=== PATIENT | male | born 1985 | race Caucasian/White ===

== ENCOUNTER 2018-08-11 19:28 | Inpatient (IN) | payer MEDICAID ==
[~2018-08-11] VITALS: Ht 157.5 cm; Wt 75.7 kg
[2018-08-11] MEDS ORDERED: SOD CHLORIDE 0.9% 1,000 ML IV STA (19:52)
[2018-08-11] MEDS ORDERED: ONDANSETRON 4 MG INJ IV STA (19:52)
[2018-08-11] MEDS ORDERED: morphine 4 MG/ML VIAL IV STA (19:52)
--- NOTE | 2018-08-11 20:39 | ERD ---
ER Documentation Chief Complaint Chief Complaint Pt reports blood in urine since yesterday HPI Patient is a 33-year-old male, no past medical history, presents the ER for concerns of hematuria and right lower quadrant pain for the last 2 days. Patient reports pain with urination. Patient states the pain comes and goes. Patient states he has vomited "20 times" today. Patient denies any fevers or chills. Patient denies any chest pain or shortness of breath. Patient denies any diarrhea. No recent travel. No sick contacts. ROS All systems reviewed and are negative except as per history of present illness. Allergies Allergies: Coded Allergies: No Known Allergy (Unverified , 08/11/18) PMhx/Soc Medical and Surgical Hx: pt denies Medical Hx, pt denies Surgical Hx Hx Miscellaneous Medical Probl: No Hx Alcohol Use: No Hx Substance Use: No Hx Tobacco Use: No Smoking Status: Never smoker FmHx Family History: No diabetes Physical Exam Vitals Vital Signs Date Temp Pulse Resp B/P (MAP) Pulse Ox O2 O2 Flow FiO2 Time Delivery Rate 08/11/18 98.0 62 16 105/72 97 Room Air 22:00 (83) 08/11/18 97.6 96 16 134/85 100 19:33 (101) Physical Exam GENERAL: Well-developed, well-nourished male. Appears in no acute distress. Spe aking in full sentences. HEAD: Normocephalic, atraumatic. EYES: Pupils are equally reactive bilaterally. EOMs grossly intact. No conjunctival erythema. ENT: Moist mucous membranes. No uvula deviation. No kissing tonsils. NECK: Supple. No meningismus. Normal range of motion of the neck. LUNG: Clear to auscultation bilaterally. No rhonchi, wheezing, rales or coarse breath sounds. HEART: Regular rate and rhythm. No murmurs, rubs or gallops. ABDOMEN: Soft and nondistended. Tender to palpation in the right lower quadrant. Positive bowel sounds in all four quadrants. No rebound tenderness, no guarding. (-) McBurney's point tenderness. No CVA tenderness. EXTREMITIES: Equal pulses bilaterally. No peripheral clubbing, cyanosis or edema. No unilateral leg swelling. NEUROLOGIC: Alert and oriented. Moving all four extremities without any difficulty. Normal speech. Steady gait. SKIN: Normal color. Warm and dry. No rashes or lesions. Result Diagram: 08/11/18201308/11/182013 Results 24 hrs Laboratory Tests Test 08/11/18 20:14 White Blood Count 9.9 10^3/ul Red Blood Count 4.92 10^6/ul Hemoglobin 13.8 g/dl Hematocrit 40.1 % Mean Corpuscular Volume 81.5 fl Mean Corpuscular Hemoglobin 28.0 pg Mean Corpuscular Hemoglobin Concent 34.4 g/dl Red Cell Distribution Width 14.2 % Platelet Count 280 10^3/UL Mean Platelet Volume 9.8 fl Immature Granulocytes % 0.300 % Neutrophils % 71.7 % Lymphocytes % 16.5 % Monocytes % 9.3 % Eosinophils % 1.9 % Basophils % 0.3 % Nucleated Red Blood Cells % 0.0 /100WBC Immature Granulocytes # 0.030 10^3/ul Neutrophils # 7.1 10^3/ul Lymphocytes # 1.6 10^3/ul Monocytes # 0.9 10^3/ul Eosinophils # 0.2 10^3/ul Basophils # 0.0 10^3/ul Nucleated Red Blood Cells # 0.0 10^3/ul Urine Color YELLOW Urine Clarity CLOUDY Urine pH 5.0 Urine Specific [place] 1.021 Urine Ketones NEGATIVE mg/dL Urine Nitrite NEGATIVE mg/dL Urine Bilirubin NEGATIVE mg/dL Urine Urobilinogen NEGATIVE mg/dL Urine Leukocyte Esterase NEGATIVE Darnell/ul Urine Microscopic RBC 96 /HPF Urine Microscopic WBC 5 /HPF Urine Mucus FEW /HPF Urine Hemoglobin 3+ mg/dL Urine Glucose NEGATIVE mg/dL Urine Total Protein NEGATIVE mg/dl Sodium Level 144 mmol/L Potassium Level 3.7 mmol/L Chloride Level 106 mmol/L Carbon Dioxide Level 25 mmol/L Anion Gap 13 Blood Urea Nitrogen 20 mg/dl Creatinine 2.11 mg/dl Est Glomerular Filtrat Rate mL/min 36 mL/min Glucose Level 93 mg/dl Calcium Level 8.7 mg/dl Total Bilirubin 0.6 mg/dl Direct Bilirubin 0.00 mg/dl Indirect Bilirubin 0.6 mg/dl Aspartate Amino Transf (AST/SGOT) 22 IU/L Alanine Aminotransferase (ALT/SGPT) 19 IU/L Alkaline Phosphatase 83 IU/L Total Protein 8.3 g/dl Albumin 4.4 g/dl Globulin 3.90 g/dl Albumin/Globulin Ratio 1.12 Lipase 73 U/L Current Medications Medications Dose Sig/Adilson Start Time Status Last (Trade) Ordered Route PRN Stop Time Admin Dose Reason Admin Sodium 1,000 ml @ Q1H STAT 08/11/18 DC 08/11/18 Chloride 1,000 mls/hr IV 19:52 08/11/18 20:11 20:51 Morphine 4 mg ONCE STAT 08/11/18 DC 08/11/18 Sulfate IV 19:52 08/11/18 20:11 (morphine) 19:53 Ondansetron 4 mg ONCE STAT 08/11/18 DC 08/11/18 HCl (Zofran IV 19:52 08/11/18 20:11 Inj) 19:53 Ondansetron 4 mg BRIDGE ORDER 08/11/18 HCl (Zofran PRN IV 23:00 08/12/18 Inj) NAUSEA/VOMITI 22:59 NG 650 mg ER BRIDGE 08/11/18 Acetaminophen PRN PO 23:00 08/12/18 (Tylenol .MILD PAIN 22:59 Tab) 1-3 OR TEMP Sodium 1,000 ml @ Q10H IV 08/11/18 08/12/18 Chloride 100 mls/hr 22:57 00:59 IV Flush 3 ml PER 08/11/18 (NS 3 ml) PROTOCOL IV 23:00 Ondansetron 4 mg Q6H PRN 08/11/18 08/12/18 HCl (Zofran IV 23:00 00:53 Inj) NAUSEA/VOMITI NG 650 mg Q6H PRN 08/11/18 Acetaminophen PO .PAIN 1-3 23:00 (Tylenol OR TEMP Tab) 1 tab Q6H PRN 08/11/18 Acetaminophen PO .MOD PAIN 23:00 / 4-6 Hydrocodone Bitart ([place] (5/325)) 2 tab Q6H PRN 08/11/18 Acetaminophen PO .SEVERE 23:00 / PAIN 7-10 Hydrocodone Bitart ([place] (5/325)) Tamsulosin 0.4 mg ONCE ONCE 08/11/18 DC 08/11/18 HCl PO 23:00 08/11/18 23:27 (Flomax) 23:01 Procedures/MDM ED COURSE: The patient was stable throughout ED course. I kept the patient and/or family informed of laboratory and diagnostic imaging results throughout the ED course. DIAGNOSTIC IMAGING: Read by radiologist. Patient: REESE MUSTAFA : 1985 Age: 33 Sex: M MR #: [id number] DOS: 08/11/181951 Ordering MD: CARMENCITA MONZON PA-C [facility] Room/Bed: PROCEDURE: CT SCAN OF THE ABDOMEN AND PELVIS NON CONTRAST CLINICAL INDICATION: Abdominal pain TECHNIQUE: Utilizing the multi-slice spiral CT scanner, Transaxial images were obtained through the abdomen and pelvis without contrast. Additional sagittal, coronal, MPR images were also obtained. DICOM images are available Radiation Dose: CTDI vol 10.53 mGy, DLP 648.76 mGy-cm. One of more of the following dose reduction techniques were utilized: -automatic exposure control -adjustment of the mA and/or kV according to patient size -Use of iterative reconstruction technique Contrast used: None COMPARISON: None FINDINGS: Limited slices through the lung bases are clear. CT Abdomen Fatty liver distended stomach, normal spleen, adrenals, pancreas and gallbladder is seen. Kidneys do not demonstrate any intra renal stones. Mild right hydroureter noted due to 5X7 mm stone in the proximal ureter, image 3 - 99 periureteric fat stranding is seen. Bowel gas pattern appears nonspecific with no free air or ascites noted. Appendix is seen appearing unremarkable. No ret roperitoneal adenopathy noted. Diverticula seen in the entire large bowel without CT evidence of acute diverticulitis noted. CT pelvis: Diverticula seen in the sigmoid colon without CT evidence of diverticulitis. Prostate, bladder appears unremarkable. No pelvic ascites noted. IMPRESSION: Fatty liver. Diverticulosis colon without CT evidence of diverticulitis Right hydroureter due to 5X7 mm stone right proximal ureter RPTAT: AAOO Physician Galo Date Time Electronically viewed and signed by Physician Galo on 08/11/2018 20:24 MB/ CC: CARMENCITA MONZON PA-C [id number] PROCEDURES: None. MEDICATIONS GIVEN: IV fluids, Zofran, morphine Patient tolerated medication well with no adverse reactions. Patient reported improvement in pain. MEDICAL DECISION MAKING: This is a 33-year-old male who presents the ER for concerns of right lower quadrant pain and hematuria x2 days. Bital signs were reviewed. Patient was afebrile. UA did show positive RBCs and positive hemoglobin. CBC showed no evidence of systemic infection. Mild anemia noted. CMP showed no severe electrolyte abnormalities, acidosis, alkalosis. His creatinine was noted to be 2.11. Concerns of renal injury. Lipase is within normal limits. CT abdomen pelvis showed Fatty liver. Diverticulosis colon without CT evidence of diverticulitis. Right hydroureter due to 5X7 mm stone right proximal ureter. Patient was given IV fluids, Zofran and morphine. Upon reexamination, patient has significant improvement pain. Given patient's elevated creatinine and size of his kidney stone, patient will be admitted for further work-up and management. Patient was stable throughout ED course. Supervising physician, Dr. Cortez will assist with admission. Low suspicion for urosepsis, septic stone, pyelonephritis, appendicitis, diverticulitis. Attending addendum: Patient presented with right-sided abdominal pain and hematuria. He was noted on work-up by the PA to have an obstructing kidney stone with hydronephrosis and labs showing evidence of renal failure. To the patient's knowledge, he does not have a history of renal disease. For this reason, I feel the patient requires admission for further specialist consultation and likely intervention. I have reviewed and agree with the PAs exam, assessment and plan. I will defer consultation of nephrology and urology to the inpatient team as this does not have to be done emergently in the ER. Spoke with the panel physician, Dr. Bone, who will admit the patient to [facility]. Departure Diagnosis: Primary Impression: Nephrolithiasis Additional Impressions: Diverticulosis Acute kidney injury Condition: Fair Patient Instructions: Kidney Stone W/ Colic Referrals: FROY JONES MD [facility] YOU HAVE RECEIVED A MEDICAL SCREENING EXAM AND THE RESULTS INDICATE THAT YOU DO NOT HAVE A CONDITION THAT REQUIRES URGENT TREATMENT IN THE EMERGENCY DEPARTMENT. FURTHER EVALUATION AND TREATMENT OF YOUR CONDITION CAN WAIT UNTIL YOU ARE SEEN IN YOUR DOCTORS OFFICE WITHIN THE NEXT 1-2 DAYS. IT IS YOUR RESPONSIBILITY TO MAKE AN APPOINTMENT FOR FOLOW-UP CARE. IF YOU HAVE A PRIMARY DOCTOR --you should call your primary doctor and schedule an appointment IF YOU DO NOT HAVE A PRIMARY DOCTOR YOU CAN CALL OUR PHYSICIAN REFERRAL HOTLINE AT IF YOU CAN NOT AFFORD TO SEE A PHYSICIAN YOU CAN CHOSE FROM THE FOLLOWING [facility] [address] [facility] [address] [facility] [address] [facility] [address] [facility] [address] [facility]. [facility] [address] [facility]. [facility] YOU HAVE RECEIVED A MEDICAL SCREENING EXAM AND THE RESULTS INDICATE THAT YOU DO NOT HAVE A CONDITION THAT REQUIRES URGENT TREATMENT IN THE EMERGENCY DEPARTMENT. FURTHER EVALUATION AND TREATMENT OF YOUR CONDITION CAN WAIT UNTIL YOU ARE SEEN IN YOUR DOCTORS OFFICE WITHIN THE NEXT 1-2 DAYS. IT IS YOUR RESPONSIBILITY TO MAKE AN APPOINTMENT FOR FOLOW-UP CARE. IF YOU HAVE A PRIMARY DOCTOR --you should call your primary doctor and schedule and appointment IF YOU DO NOT HAVE A PRIMARY DOCTOR YOU CAN CALL OUR PHYSICIAN REFERRAL HOTLINE AT . IF YOU CAN NOT AFFORD TO SEE A PHYSICIAN YOU CAN CHOSE FROM THE FOLLOWING [facility] INSTITUTIONS: [facility] [address] [place] [address] [facility] [address] [place] [address] [facility] [address] [place] [address] Additional Instructions: Necesita va carlos specialista urologia. Libby mucho agua. Llame al doctor MAANA y lucinda carlos BHASKAR PARA DENTRO DE 1-2 LUGO.Dgale a la secretaria que nosotros le instruimos hacer esta bhaskar.Avise o llame si rao condicin se empeora antes de la bhaskar. Regresa aqui si peor o no mejor. CARMENCITA MONZON PA-C Aug 11, 2018 20:38 CASIE CORTEZ MD Aug 12, 2018 02:39
--- NOTE | 2018-08-11 22:59 | HP ---
Date/Time of Note Date/Time of Note DATE: 08/11/18 TIME: 22:59 Assessment/Plan VTE Prophylaxis Pharmacological prophylaxis: heparin Lines/Catheters IV Catheter Type (from Nrsg): Saline Lock Assessment/Plan Assessment/Plan 1. Right proximal ureteral stone with hydronephrosis -IV fluid -Pain management -Flomax -Strain urine -Empiric IV Rocephin 2. Hematuria, secondary to above -UA negative for UTI -See #1 3. Acute renal insufficiency -See #1 -Nephrology consult Result Diagram: 08/11/18201308/11/182013 Results 24hrs Laboratory Tests Test 08/11/18 20:14 White Blood Count 9.9 Red Blood Count 4.92 Hemoglobin 13.8 L Hematocrit 40.1 L Mean Corpuscular Volume 81.5 L Mean Corpuscular Hemoglobin 28.0 L Mean Corpuscular Hemoglobin Concent 34.4 Red Cell Distribution Width 14.2 Platelet Count 280 Mean Platelet Volume 9.8 Immature Granulocytes % 0.300 Neutrophils % 71.7 Lymphocytes % 16.5 Monocytes % 9.3 Eosinophils % 1.9 Basophils % 0.3 Nucleated Red Blood Cells % 0.0 Immature Granulocytes # 0.030 Neutrophils # 7.1 Lymphocytes # 1.6 Monocytes # 0.9 Eosinophils # 0.2 Basophils # 0.0 Nucleated Red Blood Cells # 0.0 Urine Color YELLOW Urine Clarity CLOUDY A Urine pH 5.0 Urine Specific [place] 1.021 Urine Ketones NEGATIVE Urine Nitrite NEGATIVE Urine Bilirubin NEGATIVE Urine Urobilinogen NEGATIVE Urine Leukocyte Esterase NEGATIVE Urine Microscopic RBC 96 H Urine Microscopic WBC 5 Urine Mucus FEW A Urine Hemoglobin 3+ H Urine Glucose NEGATIVE Urine Total Protein NEGATIVE Sodium Level 144 Potassium Level 3.7 Chloride Level 106 Carbon Dioxide Level 25 Anion Gap 13 Blood Urea Nitrogen 20 Creatinine 2.11 H Est Glomerular Filtrat Rate mL/min 36 L Glucose Level 93 Calcium Level 8.7 Total Bilirubin 0.6 Direct Bilirubin 0.00 Indirect Bilirubin 0.6 Aspartate Amino Transf (AST/SGOT) 22 Alanine Aminotransferase (ALT/SGPT) 19 Alkaline Phosphatase 83 Total Protein 8.3 H Albumin 4.4 Globulin 3.90 H Albumin/Globulin Ratio 1.12 Lipase 73 HPI/ROS Admit Date/Time Admit Date/Time Hx of Present Illness Patient is a 34-year-old male who presented to ER complaining of right lower quadrant pain, hematuria and vomiting of [address] abdomen/pelvis shows Right hydroureter due to 5X7 mm stone right proximal ureter. UA negative for UTI. PMH/Family/Social Past Medical History Past Surgical Hx: other Family History Significant Family History: no pertinent family hx Social History Alcohol Use: none Smoking Status: Never smoker Drug Use: none Exam Constitutional: other (No acute distress) Head: normocephalic, atraumatic Eyes: EOMI, PERRL Respiratory: clear to auscultation, normal air movement Cardiovascular: regular rate and rhythm Gastrointestinal: soft Extremities: normal pulses Medications Current Medications Ondansetron HCl (Zofran Inj) 4 mg BRIDGE ORDER PRN IV NAUSEA/VOMITING; Start 08/11/18 at 23:00; Stop 08/12/18 at 22:59 Acetaminophen (Tylenol Tab) 650 mg ER BRIDGE PRN PO .MILD PAIN 1-3 OR TEMP; Start 08/11/18 at 23:00; Stop 08/12/18 at 22:59 Coded Allergies: No Known Allergy (Unverified , 08/11/18) Social History Smoking Status: Never smoker Exam/Review of Systems Vital Signs Vitals Vital Signs Date Temp Pulse Resp B/P (MAP) Pulse Ox O2 O2 Flow FiO2 Time Delivery Rate 08/11/18 97.6 96 16 134/85 100 19:33 (101) SEAN BOO MD Aug 11, 2018 22:59
[2018-08-11] MEDS ORDERED: TAMSULOSIN (SR) 0.4 MG CAP PO ONE (23:00)
[2018-08-11] MEDS ORDERED: ACETAMINOPHEN 325 MG TAB PO PRN ×2 (23:00)
[2018-08-11] MEDS ORDERED: ONDANSETRON 4 MG INJ IV PRN (23:00)
[2018-08-11] MEDS ORDERED: NACL 0.9% 3 ML SYG IV SCH (23:00)
[2018-08-11] MEDS ORDERED: HYDROCODONE/APAP (5/325) TAB PO PRN (23:00)
[2018-08-12 00:30] VITALS: BP 127/83; PULSE 67; RESP 19
[2018-08-12 00:42] VITALS: Ht 157.5 cm; Wt 75.7 kg
[2018-08-12] MEDS: ONDANSETRON 4 MG INJ IV PRN (00:53)
[2018-08-12] MEDS: SOD CHLORIDE 0.9% 1,000 ML IV SCH ×4 (00:59→20:56)
[2018-08-12 02:00] VITALS: BP 106/67; PULSE 75; RESP 18
[2018-08-12 07:45] VITALS: BP 104/64; PULSE 72; RESP 18
--- NOTE | 2018-08-12 11:04 | CONS ---
DATE OF ADMISSION: 08/11/2018 DATE OF CONSULTATION: 08/12/2018 TYPE OF CONSULTATION: Nephrology. REASON FOR CONSULTATION: Acute kidney injury, ureteral stone. PHYSICIAN REQUESTING CONSULT: Dr. Boo. HISTORY OF PRESENT ILLNESS: This is a 33-year-old male with no past medical history who presented to [facility] with complaints of right lower quadrant pain, hematuria and vomiting x2 days. The patient upon arrival to the emergency room had a CT scan of the abdomen and pelvis that s howed right hydroureter due to a 5 x 7 mm stone in the right proximal ureter. [facility] was placed on IV fluids, was given pain medications and admitted to med/surg. In terms of patient's renal history, the patient denies any prior history of kidney disease, acute in jury. Denies any hemoptysis, hematemesis or hematochezia. PAST MEDICAL HISTORY: None. PAST SURGICAL HISTORY: None. ALLERGIES: None. MEDICATIONS: The patient's medications have been reviewed. REVIEW OF SYSTEMS: A 14-point review of systems was conducted. Pertinent positives stated in HPI, o therwise negative. PHYSICAL EXAMINATION: VITAL SIGNS: Blood pressure 104/64, respiration 18, pulse 92, temperature 97.7. HEENT: Head is normocephalic. NECK: Supple. HEART: Regular rate. LUNGS: Show diminished breath sounds at the base. ABDOMEN: Soft, positive tender to palpation in the right lower quadrant. Positive CVA tenderness. Positive guarding, no rebound. EXTREMITIES: Negative for clubbing, cyanosis, no edema. DERMATOLOGIC: No rashes. MUSCULOSKELETAL: No joint effusion. NEUROLOGIC: No change in exam. MEDICATIONS: The patient's medications have been reviewed. LABORATORY DATA: Has been reviewed. IMAGING STUDIES: Have been reviewed. ASSESSMENT AND PLAN: This is a 33-year-old male who presents with: 1. Nonoliguric acute kidney injury, etiology secondary to volume depletion, right hydronephrosis sec ondary to ureteral stone. The patient's urinalysis was reviewed, showed evidence of hematuria consis tent with a ureteral stone. The patient's renal function has improved with IV hydration. Recommenda tion at this point is to continue current treatment plan, continue IV fluids. Will check patient's u rine electrolytes, calculate a FENa. Otherwise, continue supportive care, renally dose all meds. Wo uld consider urologic evaluation. 2. Right hydronephrosis secondary to right proximal ureteral stone. Continue current medical manage ment. Continue IV fluids, continue pain management. Continue Flomax. Continue empiric antibiotics. Follow up with urology. 3. Mild anemia. Monitor hemoglobin and hematocrit levels. 4. Mineral bone disorder. Monitor calcium and phosphorus levels. Thank you, Dr. Boo, for this interesting consult. It will be a pleasure to follow patient with you throughout the hospital course. Dictated By: KIKO SNEED DO NR/NTS Conf#: [id number] DID#: [id number] CC: SEAN BOO MD; FROY JONES MD;*End*
--- NOTE | 2018-08-12 11:05 | CONS ---
Assessment/Plan Assessment/Plan Hospital Course (Demo Recall) 33-year-old male presented to the emergency room with right flank pain associated with nausea and vomiting. He underwent a CT scan of the abdomen and pelvis and that showed: IMPRESSION: Fatty liver. Diverticulosis colon without CT evidence of diverticulitis Right hydroureter due to 5X7 mm stone right proximal ureter Patient denies any prior history of kidney stones. There is no lower urinary tract symptoms. Impression right upper ureteral stone. Upon reviewing the CT scan the stone is not dense and is not seen on the acquisition marketing coordinator film of the CT scan. It may be a uric acid stone. Recommend: Pain medications, strain the urine, tamsulosin, encourage p.o. fluids. . Consultation Date/Type/Reason Admit Date/Time August 11, 2018 Date of Consultation: Aug 12, 2018 Type of Consult Urology Reason for Consultation Right upper ureteral stone Requesting Provider: SEAN BOO MD Date/Time of Note DATE: 08/12/18 TIME: 10:59 Hx of Present Illness 33-year-old male presented to the emergency room with right flank pain associated with nausea and vomiting. He underwent a CT scan of the abdomen and pelvis and that showed: IMPRESSION: Fatty liver. Diverticulosis colon without CT evidence of diverticulitis Right hydroureter due to 5X7 mm stone right proximal ureter Patient denies any prior history of kidney stones. There is no lower urinary tract symptoms. . Constitutional: no complaints Eyes: no complaints ENT: no complaints Respiratory: no complaints Cardiovascular: no complaints Gastrointestinal: nausea (On admission), vomiting (On admission) Genitourinary: flank pain (Right side) Musculoskeletal: no complaints Skin: no complaints Neurologic: no complaints Endocrine: no complaints Past Medical History Medical History: no pertinent history Medications Current Medications Ondansetron HCl (Zofran Inj) 4 mg BRIDGE ORDER PRN IV NAUSEA/VOMITING; Start 08/11/18 at 23:00; Stop 08/12/18 at 22:59 Acetaminophen (Tylenol Tab) 650 mg ER BRIDGE PRN PO .MILD PAIN 1-3 OR TEMP; Start 08/11/18 at 23:00; Stop 08/12/18 at 22:59 Sodium Chloride 1,000 ml @ 100 mls/hr Q10H IV Last administered on 08/12/18at 00:59; Admin Dose 100 MLS/HR; Start 08/11/18 at 22:57 IV Flush (NS 3 ml) 3 ml PER PROTOCOL IV ; Start 08/11/18 at 23:00 Ondansetron HCl (Zofran Inj) 4 mg Q6H PRN IV NAUSEA/VOMITING Last administered on 08/12/18at 00:53; Admin Dose 4 MG; Start 08/11/18 at 23:00 Acetaminophen (Tylenol Tab) 650 mg Q6H PRN PO .PAIN 1-3 OR TEMP; Start 08/11/18 at 23:00 Acetaminophen/ Hydrocodone Bitart ([place] (5/325)) 1 tab Q6H PRN PO .MOD PAIN 4- 6 Last administered on 08/12/18at 08:14; Admin Dose 1 TAB; Start 08/11/18 at 23:00 Acetaminophen/ Hydrocodone Bitart ([place] (5/325)) 2 tab Q6H PRN PO .SEVERE PAIN 7-10; Start 08/11/18 at 23:00 Allergies: Coded Allergies: No Known Allergy (Unverified , 08/11/18) Past Surgical History Past Surgical Hx: no surgical history Social History Alcohol Use: none Smoking Status: Never smoker Drug Use: none Exam/Review of Systems Exam Vitals Vital Signs Date Temp Pulse Resp B/P (MAP) Pulse Ox O2 O2 Flow FiO2 Time Delivery Rate 08/12/18 97.7 72 18 104/64 96 07:45 (77) 08/11/18 Room Air 22:00 Intake and Output 08/11/18 08/11/18 08/12/18 1515:00 23:00 07:00 IntakeIntake Total 1000 ml 400 ml OutputOutput Total 300 ml BalanceBalance 1000 ml 100 ml Constitutional: alert Psych: no complaints Head: normocephalic Eyes: nl conjunctiva ENMT: nl external ears & nose Neck: supple Respiratory: normal air movement Cardiovascular: No jugular venous distention (JVD) Gastrointestinal: soft Genitourinary - Male: nl penis, nl scrotum, CVA tenderness (Right side) Extremities: No calf tenderness Neurological: nl mental status Results Result Diagram: 08/12/18 0508/12/18 05 Results 24hrs Laboratory Tests Test 08/11/18 20:14 08/12/18 05:26 White Blood Count 9.9 7.7 # Red Blood Count 4.92 4.71 Hemoglobin 13.8 L 13.0 L Hematocrit 40.1 L 38.9 L Mean Corpuscular Volume 81.5 L 82.6 Mean Corpuscular Hemoglobin 28.0 L 27.6 L Mean Corpuscular Hemoglobin Concent 34.4 33.4 Red Cell Distribution Width 14.2 14.6 H Platelet Count 280 263 Mean Platelet Volume 9.8 10.3 Immature Granulocytes % 0.300 0.300 Neutrophils % 71.7 67.3 Lymphocytes % 16.5 19.3 Monocytes % 9.3 8.4 Eosinophils % 1.9 3.9 Basophils % 0.3 0.8 Nucleated Red Blood Cells % 0.0 0.0 Immature Granulocytes # 0.030 0.020 Neutrophils # 7.1 5.2 Lymphocytes # 1.6 1.5 Monocytes # 0.9 0.7 Eosinophils # 0.2 0.3 Basophils # 0.0 0.1 Nucleated Red Blood Cells # 0.0 0.0 Urine Color YELLOW Urine Clarity CLOUDY A Urine pH 5.0 Urine Specific [place] 1.021 Urine Ketones NEGATIVE Urine Nitrite NEGATIVE Urine Bilirubin NEGATIVE Urine Urobilinogen NEGATIVE Urine Leukocyte Esterase NEGATIVE Urine Microscopic RBC 96 H Urine Microscopic WBC 5 Urine Mucus FEW A Urine Hemoglobin 3+ H Urine Glucose NEGATIVE Urine Total Protein NEGATIVE Sodium Level 144 142 Potassium Level 3.7 4.2 Chloride Level 106 110 Carbon Dioxide Level 25 24 Anion Gap 13 8 Blood Urea Nitrogen 20 18 Creatinine 2.11 H 1.42 H Est Glomerular Filtrat Rate mL/min 36 L 57 L Glucose Level 93 100 Calcium Level 8.7 8.1 L Total Bilirubin 0.6 0.5 Direct Bilirubin 0.00 0.00 Indirect Bilirubin 0.6 0.5 Aspartate Amino Transf (AST/SGOT) 22 19 Alanine Aminotransferase (ALT/SGPT) 19 16 Alkaline Phosphatase 83 75 Total Protein 8.3 H 7.0 # Albumin 4.4 3.6 Globulin 3.90 H 3.40 H Albumin/Globulin Ratio 1.12 1.05 Lipase 73 Phosphorus Level 4.1 Magnesium Level 2.2 Medications Medication Current Medications Ondansetron HCl (Zofran Inj) 4 mg BRIDGE ORDER PRN IV NAUSEA/VOMITING; Start 08/11/18 at 23:00; Stop 08/12/18 at 22:59 Acetaminophen (Tylenol Tab) 650 mg ER BRIDGE PRN PO .MILD PAIN 1-3 OR TEMP; Start 08/11/18 at 23:00; Stop 08/12/18 at 22:59 Sodium Chloride 1,000 ml @ 100 mls/hr Q10H IV Last administered on 08/12/18at 00:59; Admin Dose 100 MLS/HR; Start 08/11/18 at 22:57 IV Flush (NS 3 ml) 3 ml PER PROTOCOL IV ; Start 08/11/18 at 23:00 Ondansetron HCl (Zofran Inj) 4 mg Q6H PRN IV NAUSEA/VOMITING Last administered on 08/12/18at 00:53; Admin Dose 4 MG; Start 08/11/18 at 23:00 Acetaminophen (Tylenol Tab) 650 mg Q6H PRN PO .PAIN 1-3 OR TEMP; Start 08/11/18 at 23:00 Acetaminophen/ Hydrocodone Bitart ([place] (5/325)) 1 tab Q6H PRN PO .MOD PAIN 4- 6 Last administered on 08/12/18at 08:14; Admin Dose 1 TAB; Start 08/11/18 at 23:00 Acetaminophen/ Hydrocodone Bitart ([place] (5/325)) 2 tab Q6H PRN PO .SEVERE PAIN 7-10; Start 08/11/18 at 23:00 FROY JONES MD Aug 12, 2018 11:05
[2018-08-12] MEDS ORDERED: morphine 2 MG INJ IV PRN (13:30)
[2018-08-12 13:46] VITALS: BP 119/82; PULSE 75; RESP 18
[2018-08-12] MEDS: HYDROCODONE/APAP (5/325) TAB PO PRN ×2 (14:16→20:57)
--- NOTE | 2018-08-12 14:44 | PN ---
Date/Time of Note Date/Time of Note DATE: 08/12/18 TIME: 14:39 Assessment/Plan VTE Prophylaxis Risk score (from [facility])>0 risk: 0 SCD applied (from [facility]): Yes Pharmacological prophylaxis: NA/contraindicated Pharm contraindication: low risk/ambulating Lines/Catheters IV C[facility]ter Type (from [facility] Saline Lock Urinary Cath still in place: No Assessment/Plan Hospital Course Assessment and plan 1. Right proximal ureteral stone with hydronephrosis. Automobile Drivers and ur ologist consulted. Strain urine per urologist recommendations. Continue with analgesics. On Flomax. 2. Hematuria secondary to #1. Monitor H&H. Stable at present. 3. Acute renal insufficiency secondary to #1. Automobile Drivers following. Monitor renal panel. Correct electrolytes as needed. Disposition plan. Continue with analgesics. On IV fluids. Monitor for improvement. Follow-up with urologist recommendations. Continue to monitor in- house Discussed POC with Dr. Alvarez Result Diagram: 08/12/18 0508/12/18 0526 Results 24hrs Laboratory Tests Test 08/11/18 20:14 08/12/18 05:26 08/12/18 11:10 White Blood Count 9.9 7.7 # Red Blood Count 4.92 4.71 Hemoglobin 13.8 L 13.0 L Hematocrit 40.1 L 38.9 L Mean Corpuscular Volume 81.5 L 82.6 Mean Corpuscular Hemoglobin 28.0 L 27.6 L Mean Corpuscular Hemoglobin Concent 34.4 33.4 Red Cell Distribution Width 14.2 14.6 H Platelet Count 280 263 Mean Platelet Volume 9.8 10.3 Immature Granulocytes % 0.300 0.300 Neutrophils % 71.7 67.3 Lymphocytes % 16.5 19.3 Monocytes % 9.3 8.4 Eosinophils % 1.9 3.9 Basophils % 0.3 0.8 Nucleated Red Blood Cells % 0.0 0.0 Immature Granulocytes # 0.030 0.020 Neutrophils # 7.1 5.2 Lymphocytes # 1.6 1.5 Monocytes # 0.9 0.7 Eosinophils # 0.2 0.3 Basophils # 0.0 0.1 Nucleated Red Blood Cells # 0.0 0.0 Urine Color YELLOW Urine Clarity CLOUDY A Urine pH 5.0 Urine Specific [place] 1.021 Urine Ketones NEGATIVE Urine Nitrite NEGATIVE Urine Bilirubin NEGATIVE Urine Urobilinogen NEGATIVE Urine Leukocyte Esterase NEGATIVE Urine Microscopic RBC 96 H Urine Microscopic WBC 5 Urine Mucus FEW A Urine Hemoglobin 3+ H Urine Glucose NEGATIVE Urine Total Protein NEGATIVE 16.0 H Sodium Level 144 142 Potassium Level 3.7 4.2 Chloride Level 106 110 Carbon Dioxide Level 25 24 Anion Gap 13 8 Blood Urea Nitrogen 20 18 Creatinine 2.11 H 1.42 H Est Glomerular Filtrat Rate mL/min 36 L 57 L Glucose Level 93 100 Calcium Level 8.7 8.1 L Total Bilirubin 0.6 0.5 Direct Bilirubin 0.00 0.00 Indirect Bilirubin 0.6 0.5 Aspartate Amino Transf (AST/SGOT) 22 19 Alanine Aminotransferase (ALT/SGPT) 19 16 Alkaline Phosphatase 83 75 Total Protein 8.3 H 7.0 # Albumin 4.4 3.6 Globulin 3.90 H 3.40 H Albumin/Globulin Ratio 1.12 1.05 Lipase 73 Phosphorus Level 4.1 Magnesium Level 2.2 Urine Random Creatinine 101.10 Urine Random Sodium 121 H Subjective 24 Hr Interval Summary Free Text/Dictation still reports flank pain Exam/Review of Systems Exam Vitals Vital Signs Date Temp Pulse Resp B/P (MAP) Pulse Ox O2 O2 Flow FiO2 Time Delivery Rate 08/12/18 98.6 75 18 119/82 98 13:46 (94) 08/11/18 Room Air 22:00 Intake and Output 08/11/18 08/11/18 08/12/18 1515:00 23:00 07:00 IntakeIntake Total 1000 ml 400 ml OutputOutput Total 300 ml BalanceBalance 1000 ml 100 ml Constitutional: alert, oriented Head: normocephalic Respiratory: clear to auscultation Cardiovascular: regular rate and rhythm Gastrointestinal: soft, other (pain right flank) Neurological: DIRECTOR OF FOOD AND NUTRITION SERVICES II-XII intact, nl mental status, nl speech Skin: nl turgor Results Results 24hrs Laboratory Tests Test 08/11/18 20:14 08/12/18 05:26 08/12/18 11:10 White Blood Count 9.9 7.7 # Red Blood Count 4.92 4.71 Hemoglobin 13.8 L 13.0 L Hematocrit 40.1 L 38.9 L Mean Corpuscular Volume 81.5 L 82.6 Mean Corpuscular Hemoglobin 28.0 L 27.6 L Mean Corpuscular Hemoglobin Concent 34.4 33.4 Red Cell Distribution Width 14.2 14.6 H Platelet Count 280 263 Mean Platelet Volume 9.8 10.3 Immature Granulocytes % 0.300 0.300 Neutrophils % 71.7 67.3 Lymphocytes % 16.5 19.3 Monocytes % 9.3 8.4 Eosinophils % 1.9 3.9 Basophils % 0.3 0.8 Nucleated Red Blood Cells % 0.0 0.0 Immature Granulocytes # 0.030 0.020 Neutrophils # 7.1 5.2 Lymphocytes # 1.6 1.5 Monocytes # 0.9 0.7 Eosinophils # 0.2 0.3 Basophils # 0.0 0.1 Nucleated Red Blood Cells # 0.0 0.0 Urine Color YELLOW Urine Clarity CLOUDY A Urine pH 5.0 Urine Specific [place] 1.021 Urine Ketones NEGATIVE Urine Nitrite NEGATIVE Urine Bilirubin NEGATIVE Urine Urobilinogen NEGATIVE Urine Leukocyte Esterase NEGATIVE Urine Microscopic RBC 96 H Urine Microscopic WBC 5 Urine Mucus FEW A Urine Hemoglobin 3+ H Urine Glucose NEGATIVE Urine Total Protein NEGATIVE 16.0 H Sodium Level 144 142 Potassium Level 3.7 4.2 Chloride Level 106 110 Carbon Dioxide Level 25 24 Anion Gap 13 8 Blood Urea Nitrogen 20 18 Creatinine 2.11 H 1.42 H Est Glomerular Filtrat Rate mL/min 36 L 57 L Glucose Level 93 100 Calcium Level 8.7 8.1 L Total Bilirubin 0.6 0.5 Direct Bilirubin 0.00 0.00 Indirect Bilirubin 0.6 0.5 Aspartate Amino Transf (AST/SGOT) 22 19 Alanine Aminotransferase (ALT/SGPT) 19 16 Alkaline Phosphatase 83 75 Total Protein 8.3 H 7.0 # Albumin 4.4 3.6 Globulin 3.90 H 3.40 H Albumin/Globulin Ratio 1.12 1.05 Lipase 73 Phosphorus Level 4.1 Magnesium Level 2.2 Urine Random Creatinine 101.10 Urine Random Sodium 121 H Medications Medication Current Medications Sodium Chloride 1,000 ml @ 100 mls/hr Q10H IV Last administered on 08/12/18at 11:09; Admin Dose 100 MLS/HR; Start 08/11/18 at 22:57 IV Flush (NS 3 ml) 3 ml PER PROTOCOL IV ; Start 08/11/18 at 23:00 Ondansetron HCl (Zofran Inj) 4 mg Q6H PRN IV NAUSEA/VOMITING Last administered on 08/12/18at 00:53; Admin Dose 4 MG; Start 08/11/18 at 23:00 Acetaminophen (Tylenol Tab) 650 mg Q6H PRN PO .PAIN 1-3 OR TEMP; Start 08/11/18 at 23:00 Acetaminophen/ Hydrocodone Bitart ([place] (5/325)) 1 tab Q6H PRN PO .MOD PAIN 4- 6 Last administered on 08/12/18at 08:14; Admin Dose 1 TAB; Start 08/11/18 at 23:00 Acetaminophen/ Hydrocodone Bitart ([place] (5/325)) 2 tab Q6H PRN PO .SEVERE PAIN 7-10 Last administered on 08/12/18at 14:16; Admin Dose 2 TAB; Start 08/11/18 at 23:00 Tamsulosin HCl (Flomax) 0.4 mg HS PO ; Start 08/12/18 at 21:00 Hydromorphone HCl (Dilaudid) 1 mg Q4H PRN IV SEVERE PAIN LEVEL 7-10; Start 08/12/18 at 15:00; Status DANIELV ANNIE KIM NP Aug 12, 2018 14:44
[2018-08-12] MEDS: HYDROmorphONE 1 MG/ML SYG IV PRN ×2 (15:31→19:39)
[2018-08-12 20:00] VITALS: BP 110/72; PULSE 79; RESP 18
[2018-08-12] MEDS: TAMSULOSIN (SR) 0.4 MG CAP PO SCH (20:53)
[2018-08-12] MEDS ORDERED: HYDROmorphONE 1 MG/ML SYG IV ONE (22:00)
[2018-08-13] MEDS: ONDANSETRON 4 MG INJ IV PRN ×2 (01:19→09:04)
[2018-08-13] MEDS: HYDROmorphONE 1 MG/ML SYG IV PRN ×6 (01:20→20:50)
[2018-08-13 02:00] VITALS: BP 110/75; PULSE 88; RESP 18
[2018-08-13 07:47] VITALS: BP 112/67; PULSE 73; RESP 18
--- NOTE | 2018-08-13 08:56 | PN ---
DATE: 08/13/2018 SUBJECTIVE: The patient's pain is present, but improving. No other events noted. OBJECTIVE: VITAL SIGNS: Blood pressure is 112/67, respiration 18, pulse 73, temperature 98.5. HEENT: Head is normocephalic. NECK: Supple. HEART: Regular rate. LUNGS: Show diminished breath sounds at the base. ABDOMEN: Soft, nontender to palpation without rebound or guarding. EXTREMITIES: Negative for clubbing, cyanosis, no edema. DERMATOLOGIC: No rashes. MUSCULOSKELETAL: No joint effusion. NEUROLOGIC: No change in exam. MEDICATIONS: Have been reviewed. LABORATORY DATA: Has been reviewed. IMAGING STUDIES: Have been reviewed. ASSESSMENT AND PLAN: 1. Nonoliguric acute kidney injury, etiology secondary to volume depletion, right-sided hydronephros is secondary to ureteral stone. The patient's renal function has improved with IV hydration. Will c ontinue current treatment plan. Continue IV hydration. Continue to strain urine. Monitor closely. 2. Right hydronephrosis secondary to right proximal ureteral stone. The patient was seen by urology . Continue IV hydration, Flomax, strain urine. Monitor closely. Continue pain management. 3. Mild anemia. Monitor hemoglobin and hematocrit levels. 4. Mineral bone disorder, monitor calcium and phosphorus levels. Dictated By: KIKO SNEED DO NR/NTS Conf#: [id number] DID#: [id number] CC: SEAN BOO MD;*End*
[2018-08-13] MEDS: SOD CHLORIDE 0.9% 1,000 ML IV SCH ×2 (09:04→19:31)
--- NOTE | 2018-08-13 10:30 | CONS ---
Consult Date/Type/Reason Admit Date/Time Aug 11, 2018 at 23:06 Initial Consult Date 08/12/18 Type of Consultation: Urology Reason for Consultation Right upper ureteral stone Requesting Provider: SEAN BOO MD Date/Time of Note DATE: 08/13/18 TIME: 10:24 Subjective Patient is comfortable. Objective Vitals Vital Signs Date Temp Pulse Resp B/P (MAP) Pulse Ox O2 O2 Flow FiO2 Time Delivery Rate 08/13/18 98.5 73 18 112/67 93 07:47 (82) 08/11/18 Room Air 22:00 Intake and Output 08/12/18 08/12/18 08/13/18 1515:00 23:00 07:00 IntakeIntake Total 600 ml 1000 ml 900 ml OutputOutput Total 500 ml 1200 ml BalanceBalance 100 ml 1000 ml -300 ml Exam Abdomen is soft, he does have mild right flank tenderness. The KUB that was done did not show the stone. The stone may be radiolucent or it is overlapped by bowel content. Results/Medications Result Diagram: 08/12/18 0526 08/12/18 0526 Results 24 hrs Laboratory Tests Test 08/12/18 11:10 Urine Random Creatinine 101.10 Urine Random Sodium 121 H Urine Total Protein 16.0 H Creatinine is down to 1.42 from 2.11 Medications Current Medications Sodium Chloride 1,000 ml @ 100 mls/hr Q10H IV Last administered on 08/13/18at 09:04; Admin Dose 100 MLS/HR; Start 08/11/18 at 22:57 IV Flush (NS 3 ml) 3 ml PER PROTOCOL IV ; Start 08/11/18 at 23:00 Ondansetron HCl (Zofran Inj) 4 mg Q6H PRN IV NAUSEA/VOMITING Last administered on 08/13/18at 09:04; Admin Dose 4 MG; Start 08/11/18 at 23:00 Acetaminophen (Tylenol Tab) 650 mg Q6H PRN PO .PAIN 1-3 OR TEMP; Start 08/11/18 at 23:00 Acetaminophen/ Hydrocodone Bitart ([place] (5/325)) 1 tab Q6H PRN PO .MOD PAIN 4- 6 Last administered on 08/12/18at 08:14; Admin Dose 1 TAB; Start 08/11/18 at 23:00 Acetaminophen/ Hydrocodone Bitart ([place] (5/325)) 2 tab Q6H PRN PO .SEVERE PAIN 7-10 Last administered on 08/12/18at 20:57; Admin Dose 2 TAB; Start 08/11/18 at 23:00 Tamsulosin HCl (Flomax) 0.4 mg HS PO Last administered on 08/12/18at 20:53; Admin Dose 0.4 MG; Start 08/12/18 at 21:00 Hydromorphone HCl (Dilaudid) 1 mg Q3H PRN IV SEVERE PAIN LEVEL 7-10 Last administered on 08/13/18at 05:56; Admin Dose 1 MG; Start 08/12/18 at 22:00 Assessment/Plan Hospital Course (Demo Recall) 33-year-old male presented to the emergency room with right flank pain associated with nausea and vomiting. He underwent a CT scan of the abdomen and pelvis and that showed: Fatty liver. Diverticulosis colon without CT evidence of diverticulitis Right hydroureter due to 5X7 mm stone right proximal ureter Patient denies any prior history of kidney stones. There is no lower urinary t ract symptoms. Patient is feeling better he did not have any severe pain. There is no nausea or vomiting. KUB did not show the stone as a stone may be radiolucent. As the patient has had no acute pain he may be discharged on oral pain medications and have him strain his urine at home. And should he have severe pain that is not controlled with pain medication he should go back to the emergency room either here or at [facility]. . FROY JONES MD Aug 13, 2018 10:30
--- NOTE | 2018-08-13 14:39 | PN ---
Date/Time of Note Date/Time of Note DATE: 08/13/18 TIME: 14:38 Assessment/Plan VTE Prophylaxis Risk score (from [facility])>0 risk: 0 SCD applied (from [facility]): Yes Pharmacological prophylaxis: NA/contraindicated Pharm contraindication: low risk/ambulating Lines/Catheters IV Catheter Type (from [facility]): Peripheral IV Urinary Cath still in place: No Assessment/Plan Hospital Course Assessment and plan 1. Right proximal ureteral stone with hydronephrosis. Removable Prosthodontist and urologist following. Strain urine per urologist recommendations. Continue with analgesics. On Flomax. 2. Hematuria secondary to #1. Monitor H&H. Stable at present. 3. Acute renal insufficiency secondary to #1. Removable Prosthodontist following. Monitor renal panel. Correct electrolytes as needed. Appears to be improving at present Disposition plan. Continue with analgesics. On IV fluids. With worse pain during interview. Monitor inhouse today. If pain lessens, plan for d/c and outpatient follow up. Further recommendations pending clinical course. Discussed POC with Dr. Alvarez Result Diagram: 08/12/1852508/12/18525 Subjective 24 Hr Interval Summary Free Text/Dictation reported moderate pain on right flank during visit Exam/Review of Systems Exam Vitals Vital Signs Date Temp Pulse Resp B/P (MAP) Pulse Ox O2 O2 Flow FiO2 Time Delivery Rate 08/13/18 98.5 73 18 112/67 93 07:47 (82) 08/11/18 Room Air 22:00 Intake and Output 08/12/18 08/12/18 08/13/18 1515:00 23:00 07:00 IntakeIntake Total 600 ml 1000 ml 900 ml OutputOutput Total 500 ml 1200 ml BalanceBalance 100 ml 1000 ml -300 ml Exam Constitutional: alert, oriented Head: normocephalic Respiratory: clear to auscultation Cardiovascular: regular rate and rhythm Gastrointestinal: soft, other (pain right flank) Neurological: COMPTOMETER OPERATOR II-XII intact, nl mental status, nl speech Skin: nl turgor Medications Medication Current Medications Sodium Chloride 1,000 ml @ 100 mls/hr Q10H IV Last administered on 08/13/18at 09:04; Admin Dose 100 MLS/HR; Start 08/11/18 at 22:57 IV Flush (NS 3 ml) 3 ml PER PROTOCOL IV ; Start 08/11/18 at 23:00 Ondansetron HCl (Zofran Inj) 4 mg Q6H PRN IV NAUSEA/VOMITING Last administered on 08/13/18 09:04; Admin Dose 4 MG; Start 08/11/18 at 23:00 Acetaminophen (Tylenol Tab) 650 mg Q6H PRN PO .PAIN 1-3 OR TEMP; Start 08/11/18 at 23:00 Acetaminophen/ Hydrocodone Bitart ([place] (5/325)) 1 tab Q6H PRN PO .MOD PAIN 4- 6 Last administered on 08/12/18 08:14; Admin Dose 1 TAB; Start 08/11/18 at 23:00 Acetaminophen/ Hydrocodone Bitart ([place] (5/325)) 2 tab Q6H PRN PO .SEVERE PAIN 7-10 Last administered on 08/12/18 20:57; Admin Dose 2 TAB; Start 08/11/18 at 23:00 Tamsulosin HCl (Flomax) 0.4 mg HS PO Last administered on 08/12/18 20:53; Admin Dose 0.4 MG; Start 08/12/18 at 21:00 Hydromorphone HCl (Dilaudid) 1 mg Q3H PRN IV SEVERE PAIN LEVEL 7-10 Last administered on 08/13/18 13:51; Admin Dose 1 MG; Start 08/12/18 at 22:00 ANNIE KIM NP Aug 13, 2018 14:39
[2018-08-13 14:48] VITALS: BP 103/59; PULSE 79; RESP 16
[2018-08-13 19:50] VITALS: BP 105/67; PULSE 70; RESP 20
[2018-08-13] MEDS: TAMSULOSIN (SR) 0.4 MG CAP PO SCH (20:49)
[2018-08-14] MEDS: ONDANSETRON 4 MG INJ IV PRN (00:28)
[2018-08-14] MEDS: HYDROmorphONE 1 MG/ML SYG IV PRN ×4 (00:33→17:10)
[2018-08-14 02:10] VITALS: BP 109/64; PULSE 81; RESP 18
[2018-08-14] MEDS: SOD CHLORIDE 0.9% 1,000 ML IV SCH ×2 (06:10→16:01)
[2018-08-14 08:16] VITALS: BP 114/67; PULSE 73; RESP 18
--- NOTE | 2018-08-14 08:48 | PN ---
DATE: 08/14/2018 SUBJECTIVE: The patient's pain is improving. OBJECTIVE: VITAL SIGNS: Blood pressure is 109/64, respirations 18, pulse 81, temperature 98.0. HEENT: Head is normocephalic. NECK: Supple. HEART: Regular rate. LUNGS: Show diminished breath sounds at the base. ABDOMEN: Soft, nontender to palpation. No rebound or guarding. EXTREMITIES: Negative for clubbing, cyanosis. No edema. DERMATOLOGIC: No rashes. NEUROLOGIC: No change in exam. MEDICATIONS: The patient's medications have been reviewed. LABORATORY DATA: Has been reviewed. IMAGING STUDIES: Have been reviewed. ASSESSMENT AND PLAN: 1. Oliguric acute kidney injury. Etiology is secondary to hemodynamics, hydronephrosis. The patien t's renal function has been improving with intravenous hydration. Continue current treatment plan, s upportive care. Monitor closely. 2. Right proximal ureteral stone with right-sided hydronephrosis. The patient's KUB shows no eviden ce of active stone. Possible passage of stone. Continue current treatment plan. Continue intraveno us fluids, pain control. 3. Benign prostatic hypertrophy. Follow up with urology. 4. Mild anemia. Monitor hemoglobin and hematocrit levels. 5. Mineral bone disorder. Monitor calcium and phosphorus levels. Dictated By: KIKO SNEED DO NR/NTS Conf#: [id number] DID#: [id number] CC: SEAN BOO MD;*EndCC*
[2018-08-14] MEDS: DOCUSATE SODIUM 100 MG CAP PO SCH ×2 (12:45→21:00)
[2018-08-14 14:28] VITALS: BP 118/66; PULSE 76; RESP 18
--- NOTE | 2018-08-14 19:11 | CONS ---
Consult Date/Type/Reason Admit Date/Time Aug 11, 2018 at 23:06 Initial Consult Date 08/12/18 Type of Consultation: Urology Reason for Consultation Right ureteral stone Requesting Provider: SEAN BOO MD Date/Time of Note DATE: 08/14/18 TIME: 19:09 Subjective Patient is comfortable and denies having any pain Objective Vitals Vital Signs Date Temp Pulse Resp B/P (MAP) Pulse Ox O2 O2 Flow FiO2 Time Delivery Rate 08/14/18 98.7 76 18 118/66 97 Room Air 14:28 (83) Intake and Output 08/13/18 08/13/18 08/14/18 1515:00 23:00 07:00 IntakeIntake Total 100 ml 2500 ml 1000 ml OutputOutput Total 1800 ml 1450 ml BalanceBalance 100 ml 700 ml -450 ml Exam Abdomen is soft and there is no flank tenderness Results/Medications Result Diagram: 08/14/18 0506 08/14/18 0506 Results 24 hrs Laboratory Tests Test 08/14/18 05:06 White Blood Count 8.6 Red Blood Count 4.27 L Hemoglobin 12.0 L Hematocrit 35.0 L Mean Corpuscular Volume 82.0 Mean Corpuscular Hemoglobin 28.1 L Mean Corpuscular Hemoglobin Concent 34.3 Red Cell Distribution Width 14.0 Platelet Count 252 Mean Platelet Volume 10.6 H Immature Granulocytes % 0.200 Neutrophils % 63.5 Lymphocytes % 22.8 Monocytes % 9.0 Eosinophils % 3.8 Basophils % 0.7 Nucleated Red Blood Cells % 0.0 Immature Granulocytes # 0.020 Neutrophils # 5.5 Lymphocytes # 2.0 Monocytes # 0.8 Eosinophils # 0.3 Basophils # 0.1 Nucleated Red Blood Cells # 0.0 Sodium Level 141 Potassium Level 3.6 Chloride Level 106 Carbon Dioxide Level 26 Anion Gap 9 Blood Urea Nitrogen 13 Creatinine 1.26 H Est Glomerular Filtrat Rate mL/min > 60 Glucose Level 83 Calcium Level 8.2 L Medications Current Medications Sodium Chloride 1,000 ml @ 100 mls/hr Q10H IV Last administered on 08/14/18at 16:01; Admin Dose 100 MLS/HR; Start 08/11/18 at 22:57 IV Flush (NS 3 ml) 3 ml PER PROTOCOL IV ; Start 08/11/18 at 23:00 Ondansetron HCl (Zofran Inj) 4 mg Q6H PRN IV NAUSEA/VOMITING Last administered on 08/14/18 00:28; Admin Dose 4 MG; Start 08/11/18 at 23:00 Acetaminophen (Tylenol Tab) 650 mg Q6H PRN PO .PAIN 1-3 OR TEMP; Start 08/11/18 at 23:00 Acetaminophen/ Hydrocodone Bitart ([place] (5/325)) 1 tab Q6H PRN PO .MOD PAIN 4- 6 Last administered on 08/12/18 08:14; Admin Dose 1 TAB; Start 08/11/18 at 23:00 Acetaminophen/ Hydrocodone Bitart ([place] (5/325)) 2 tab Q6H PRN PO .SEVERE PAIN 7-10 Last administered on 08/12/18 20:57; Admin Dose 2 TAB; Start 08/11/18 at 23:00 Tamsulosin HCl (Flomax) 0.4 mg HS PO Last administered on 08/13/18 20:49; Admin Dose 0.4 MG; Start 08/12/18 at 21:00 Hydromorphone HCl (Dilaudid) 1 mg Q3H PRN IV SEVERE PAIN LEVEL 7-10 Last administered on 08/14/18 17:10; Admin Dose 1 MG; Start 08/12/18 at 22:00 Docusate Sodium (Colace) 100 mg BID PO Last administered on 08/14/18 12:45; Admin Dose 100 MG; Start 08/14/18 at 13:00 Assessment/Plan Hospital Course (Demo Recall) 33-year-old male presented to the emergency room with right flank pain associated with nausea and vomiting. He underwent a CT scan of the abdomen and pelvis and that showed: Fatty liver. Diverticulosis colon without CT evidence of diverticulitis Right hydroureter due to 5X7 mm stone right proximal ureter Patient denies any prior history of kidney stones. There is no lower urinary tract symptoms. Patient is feeling better he did not have pain today. There is no nausea or vomiting. On the exam there is no flank tenderness and the abdomen is soft. His creatinine has come down to 1.26. His white count is normal. Since the patient is comfortable and his renal function is improving he may be discharged home and follow-up as an outpatient. FROY JONES MD Aug 14, 2018 19:11
--- NOTE | 2018-08-14 19:49 | PN ---
Date/Time of Note Date/Time of Note DATE: 08/14/18 TIME: 19:47 Assessment/Plan VTE Prophylaxis Risk score (from Ns)>0 risk: 0 SCD applied (from Ns): Yes Pharmacological prophylaxis: NA/contraindicated Pharm contraindication: low risk/ambulating Lines/Catheters [facility] Peripheral IV Urinary Cath still in place: No Assessment/Plan Hospital Course Assessment and plan 1. Right proximal ureteral stone with hydronephrosis. [employer] Education Teacher and urologist following. Strain urine per urologist recommendations. Continue with analgesics. On Flomax. Appears to be improving 2. Hematuria secondary to #1. Monitor H&H. Stable at present. 3. Acute renal insufficiency secondary to #1. [employer] Education Teacher following. . Appears to be improving at present Disposition plan. Continue with analgesics. appears to be improving. scanning manager to follow to assist with outpatient follow up. d/c planning Discussed POC with Dr. Alvarez Result Diagram: 08/14/18 0506 08/14/18 0506 Results 24hrs Laboratory Tests Test 08/14/18 05:06 White Blood Count 8.6 Red Blood Count 4.27 L Hemoglobin 12.0 L Hematocrit 35.0 L Mean Corpuscular Volume 82.0 Mean Corpuscular Hemoglobin 28.1 L Mean Corpuscular Hemoglobin Concent 34.3 Red Cell Distribution Width 14.0 Platelet Count 252 Mean Platelet Volume 10.6 H Immature Granulocytes % 0.200 Neutrophils % 63.5 Lymphocytes % 22.8 Monocytes % 9.0 Eosinophils % 3.8 Basophils % 0.7 Nucleated Red Blood Cells % 0.0 Immature Granulocytes # 0.020 Neutrophils # 5.5 Lymphocytes # 2.0 Monocytes # 0.8 Eosinophils # 0.3 Basophils # 0.1 Nucleated Red Blood Cells # 0.0 Sodium Level 141 Potassium Level 3.6 Chloride Level 106 Carbon Dioxide Level 26 Anion Gap 9 Blood Urea Nitrogen 13 Creatinine 1.26 H Est Glomerular Filtrat Rate mL/min > 60 Glucose Level 83 Calcium Level 8.2 L Subjective 24 Hr Interval Summary Free Text/Dictation no s/s of distress. reports less paion Exam/Review of Systems Exam Vitals Vital Signs Date Temp Pulse Resp B/P (MAP) Pulse Ox O2 O2 Flow FiO2 Time Delivery Rate 08/14/18 98.7 76 18 118/66 97 Room Air 14:28 (83) Intake and Output 08/13/18 08/13/18 08/14/18 1515:00 23:00 07:00 IntakeIntake Total 100 ml 2500 ml 1000 ml OutputOutput Total 1800 ml 1450 ml BalanceBalance 100 ml 700 ml -450 ml Exam Constitutional: alert, oriented Head: normocephalic Respiratory: clear to auscultation Cardiovascular: regular rate and rhythm Gastrointestinal: soft, other (pain right flank) Neurological: [employer] HAND II-XII intact, nl mental status, nl speech Skin: nl turgor Results Results 24hrs Laboratory Tests Test 08/14/18 05:06 White Blood Count 8.6 Red Blood Count 4.27 L Hemoglobin 12.0 L Hematocrit 35.0 L Mean Corpuscular Volume 82.0 Mean Corpuscular Hemoglobin 28.1 L Mean Corpuscular Hemoglobin Concent 34.3 Red Cell Distribution Width 14.0 Platelet Count 252 Mean Platelet Volume 10.6 H Immature Granulocytes % 0.200 Neutrophils % 63.5 Lymphocytes % 22.8 Monocytes % 9.0 Eosinophils % 3.8 Basophils % 0.7 Nucleated Red Blood Cells % 0.0 Immature Granulocytes # 0.020 Neutrophils # 5.5 Lymphocytes # 2.0 Monocytes # 0.8 Eosinophils # 0.3 Basophils # 0.1 Nucleated Red Blood Cells # 0.0 Sodium Level 141 Potassium Level 3.6 Chloride Level 106 Carbon Dioxide Level 26 Anion Gap 9 Blood Urea Nitrogen 13 Creatinine 1.26 H Est Glomerular Filtrat Rate mL/min > 60 Glucose Level 83 Calcium Level 8.2 L Medications Medication Current Medications Sodium Chloride 1,000 ml @ 100 mls/hr Q10H IV Last administered on 08/14/18at 16:01; Admin Dose 100 MLS/HR; Start 08/11/18 at 22:57 IV Flush (NS 3 ml) 3 ml PER PROTOCOL IV ; Start 08/11/18 at 23:00 Ondansetron HCl (Zofran Inj) 4 mg Q6H PRN IV NAUSEA/VOMITING Last administered on 08/14/18at 00:28; Admin Dose 4 MG; Start 08/11/18 at 23:00 Acetaminophen (Tylenol Tab) 650 mg Q6H PRN PO .PAIN 1-3 OR TEMP; Start 08/11/18 at 23:00 Acetaminophen/ Hydrocodone Bitart ([place] (5/325)) 1 tab Q6H PRN PO .MOD PAIN 4- 6 Last administered on 08/12/18 08:14; Admin Dose 1 TAB; Start 08/11/18 at 23:00 Acetaminophen/ Hydrocodone Bitart ([place] (5/325)) 2 tab Q6H PRN PO .SEVERE PAIN 7-10 Last administered on 08/12/18 20:57; Admin Dose 2 TAB; Start 08/11/18 at 23:00 Tamsulosin HCl (Flomax) 0.4 mg HS PO Last administered on 08/13/18 20:49; Admin Dose 0.4 MG; Start 08/12/18 at 21:00 Hydromorphone HCl (Dilaudid) 1 mg Q3H PRN IV SEVERE PAIN LEVEL 7-10 Last administered on 08/14/18 17:10; Admin Dose 1 MG; Start 08/12/18 at 22:00 Docusate Sodium (Colace) 100 mg BID PO Last administered on 08/14/18 12:45; Admin Dose 100 MG; Start 08/14/18 at 13:00 ANNIE KIM [employer] RE[employer]UITER Aug 14, 2018 19:49
[2018-08-14 20:00] VITALS: BP 130/86; PULSE 73; RESP 17
[2018-08-14] MEDS: TAMSULOSIN (SR) 0.4 MG CAP PO SCH (21:00)
== END 2018-08-14 20:40 | disposition left against medical advice (07) | DRG 694 ==
LOC: FTE 19:28 → PP2 23:06
PROVIDERS: ADMIT Internal Medicine; ATTEND Internal Medicine
DX: N13.2 Hydronephrosis with renal and ureteral calculous obstruction (principal); K57.90 Diverticulosis of intestine, part unspecified, without perforation or abscess without bleeding; N17.9 Acute kidney failure, unspecified; R31.9 Hematuria, unspecified; D64.9 Anemia, unspecified; E83.9 Disorder of mineral metabolism, unspecified; K76.0 Fatty (change of) liver, not elsewhere classified
CPT/HCPCS: 36415; 74018; 74176; 80048; 80053; 81001; 81003; 82043; 83690; 83735; 84100; 84155; 84300; 85025; 96361; 96374; 96375; J1170; J2270; J2405; J7030